=== PATIENT | male | born 2000 | race Caucasian/White ===

== ENCOUNTER 2023-07-23 05:12 | Emergency (ER) | payer MEDICAID, SELFPAY ==
[2023-07-23 05:16] VITALS: BP 130/61; PULSE 88; RESP 16; TEMP 36.8; O2SAT 99
--- NOTE | 2023-07-23 05:32 | ED.GENADULT ---
HPI - General Adult General Chief complaint: Nausea/Vomiting/Diarrhea Stated complaint: vomiting x 2, once with streaks of blood Time Seen by Provider: 07/23/23 05:25 History of Present Illness HPI narrative: Patient 23-year-old gentleman presents emerged from with chief complaint nausea vomiting diarrhea. Patient reports this evening he had several episodes of vomiting and then also has had watery diarrhea. The patient states that the 2nd time he vomited there were some blood streaks in the vomitus and decided to come to the emergency department patient states he has a crampy feeling throughout his abdomen patient denies fever Related Data Allergies Allergy/AdvReac Type Severity Reaction Status Date / Time No Known Allergies Allergy Verified 07/23/23 05:30 Review of Systems Review of Systems: A 10 system review of systems was completed on the patient and is negative except for what is stated in the HPI. Nursing and ancillary documentation was reviewed. Exam Narrative: GENERAL: Well-appearing, well-nourished, and in no acute distress. HEAD: Normocephalic, atraumatic. EYES: PERRLA and EOMI. ENT: Nares clear, no rhinorrhea or epistaxis. Mucous membranes moist. NECK: Supple. CHEST: Clear to auscultation. No respiratory distress. HEART: Regular rate and rhythm. No murmur heard. Normal peripheral pulses. ABDOMEN: Soft, nontender, nondistended, normal active bowel sounds. EXTREMITIES: Normal range of motion. No edema. SKIN: Warm, dry, no rash. NEURO: No focal deficits. Alert and oriented x3. PSYCH: Normal mood and affect. Course Vital Signs Vital signs: Vital Signs Temperature 36.8 C 07/23/23 05:16 Pulse Rate 88 07/23/23 05:16 Respiratory Rate 16 07/23/23 05:16 Blood Pressure 130/61 07/23/23 05:16 Pulse Oximetry 99 07/23/23 05:16 Oxygen Delivery Room Air 07/23/23 05:16 Temperature 36.8 C 07/23/23 05:16 Pulse Rate 88 07/23/23 05:49 Respiratory Rate 16 07/23/23 05:16 Blood Pressure 142/72 H 07/23/23 05:49 Pulse Oximetry 94 07/23/23 05:49 Oxygen Delivery Room Air 07/23/23 05:16 Medical Decision Making [facility] Narrative Medical decision making narrative: Differential diagnosis includes gastritis, colitis, viral Syndrome Laboratory studies were obtained on the patient showed a white count of 15.8 electrolytes are within normal limits urinalysis showed 1+ ketones the patient has received IV fluids antiemetics and is feeling much better. The patient is able tolerate p.o. patient be discharged home with a diagnosis of gastroenteritis Vital Signs Vital Signs: Vital Signs Temperature 36.8 C 07/23/23 05:16 Pulse Rate 88 07/23/23 05:16 Respiratory Rate 16 07/23/23 05:16 Blood Pressure 130/61 07/23/23 05:16 Pulse Oximetry 99 07/23/23 05:16 Oxygen Delivery Room Air 07/23/23 05:16 Temperature 36.8 C 07/23/23 05:16 Pulse Rate 88 07/23/23 05:49 Respiratory Rate 16 07/23/23 05:16 Blood Pressure 142/72 H 07/23/23 05:49 Pulse Oximetry 94 07/23/23 05:49 Oxygen Delivery Room Air 07/23/23 05:16 Lab Data 07/23/23 05:41 07/23/23 05:41 Labs: Lab Results 07/23/23 07/23/23 Range/Units 05:41 05:41 WBC 15.8 H (4.5-10.0) K/mm3 RBC 5.96 (4.6-6.20) M/mm3 Hgb 17.6 (14.0-18.0) g/dL Hct 51.9 (42.0-52.0) % MCV 87.1 (80-100) fl MCH 29.5 (26-34) pg MCHC 33.9 (32-36) g/dl RDW 12.4 (11.5-14.5) % Plt Count 297 (150-375) k/mm3 MPV 10.1 (7.4-10.4) fl Immature Gran % (Auto) 0.4 (0-0.5) % Neut % (Auto) 87.7 H (45.5-73.1) % Lymph % (Auto) 5.3 L (18.3-44.2) % [place] % (Auto) 5.4 (2.6-8.5) % Eos % (Auto) 0.8 (0-4.4) % Baso % (Auto) 0.4 (0.2-1.2) % Lymph # (Auto) 0.84 L (0.9-3.2) K/mm3 [place] # (Auto) 0.9 H (0.1-0.6) K/mm3 Eos # (Auto) 0.1 (0-0.3) K/mm3 Baso # (Auto) 0.1 (0.0-0.1) K/mm3 Abs Immat Gran (auto) 0.06 H (0.00-0.0
[2023-07-23] MEDS: ONDANSETRON INJ 4 MG/2 ML VIAL IV PUSH (05:35)
[2023-07-23] MEDS: SODIUM CHLORIDE 0.9% IV 1,000 ML 999 ML IV CONT (05:36)
[2023-07-23] MEDS: PANTOPRAZOLE SODIUM IV 40 MG VIAL IV PUSH (05:36)
[2023-07-23 05:49] VITALS: BP 142/72; PULSE 88; O2SAT 94
[2023-07-23 05:50] LABS: Basophils Absolute Auto 0.1 K/mm3 (0.0-0.1); Basophils Percent Auto 0.4 % (0.2-1.2); Eosinophils Absolute Auto 0.1 K/mm3 (0-0.3); Eosinophils Percent Auto 0.8 % (0-4.4); Hematocrit 51.9 % (42.0-52.0); Hemoglobin 17.6 g/dL (14.0-18.0); Immature Granulocyte Absolute 0.06 K/mm3 (0.00-0.031); Immature Granulocyte Percent A 0.4 % (0-0.5); Lymphocytes Absolute Auto 0.84 K/mm3 (0.9-3.2); Lymphocytes Percent Auto 5.3 % (18.3-44.2); Mean Corpuscular HGB Conc 33.9 g/dl (32-36); Mean Corpuscular Hemoglobin 29.5 pg (26-34); Mean Corpuscular Volume 87.1 fl (80-100); Mean Platelet Volume 10.1 fl (7.4-10.4); Monocytes Absolute Auto 0.9 K/mm3 (0.1-0.6); Monocytes Percent Auto 5.4 % (2.6-8.5); Neutrophils Absolute Auto 13.8 K/mm3 (1.3-6.7); Neutrophils Percent Auto 87.7 % (45.5-73.1); Platelet Count Result 297 k/mm3 (150-375); Red Blood Count 5.96 M/mm3 (4.6-6.20); Red Cell Distribution Width 12.4 % (11.5-14.5); White Blood Count 15.8 K/mm3 (4.5-10.0)
[2023-07-23 05:56] LABS: Appearance Urine Clear (Clear); Bacteria Urine None Seen /hpf; Bilirubin Urine Negative (Negative); Blood Urine Negative (Negative); Color Urine Yellow (Yellow); Glucose Urine UA Negative (Negative); Ketones Urine 1+ mg/dL (Negative); Leukocyte Esterase Ur Negative LEU/UL (Negative); Nitrate Urine Negative (Negative); Non Pathogenic Casts 0-2; Protein Urine Trace mg/dL (Negative); RBC Urine 0-2 /hpf (0-2); Specific Grav Ur 1.027 (1.001-1.035); Squamous Epithelial Cell Urine None seen /hpf (Few); Urobilinogen Urine 0.2 mg/dL (<2.0); WBC Urine 0-5 /hpf; pH Urine 5.5 (5.0-9.0)
[2023-07-23 06:04] LABS: Add Urine Microscopic? YES
[2023-07-23 06:12] LABS: Alanine Aminotransferase 27 U/L (6-50); Alkaline Phosphatase 150 U/L (38-126); Anion Gap 14 mmol/L (8-16); Aspartate Amino Transferase 29 U/L (17-59); Bilirubin,Total 1.1 mg/dL (0.2-1.3); Blood Urea Nitrogen 19 mg/dL (9-20); Calcium 9.8 mg/dL (8.4-10.2); Carbon Dioxide 23 mmol/L (22-30); Chloride 103 mmol/L (98-107); Estimated CRCL calculation 104 ml/min; Estimated Glomerular Filt Rate > 60; Glucose 120 mg/dL (65-110); Lipase 30 U/L (23-300); Potassium 4.4 mmol/L (3.4-5.0); Sodium 140 mmol/L (137-145)
--- NOTE | 2023-07-23 06:28 | PC.NURSE ---
Patient give crackers and water for PO challenge.
== END 2023-07-23 06:47 | disposition home or self-care (01) ==
PROVIDERS: Emergency Provider Emergency Medicine
DX: K52.9 Noninfective gastroenteritis and colitis, unspecified (principal)
CPT/HCPCS: 36415; 80053; 81001; 83690; 85025; 96361; 96374; 96375; 99284; C9113; J2405; J7030